=== PATIENT | female | born 1960 | race Caucasian/White ===

== ENCOUNTER → 2016-05-22 | Outpatient (CLI) | payer OTHER, MEDICARE ==
[2014-08-31 12:30] VITALS: BP 100/61
[~2016-05-22] MED LIST: ACET500T68 PO; ASPI-482 PO; ATOR20TA58; ATOR20TA58 PO; ESTR10TA; LACT1CAP25; LEVO75TA; LEVO75TA5 PO; LORA10CA; LORA10TA3 PO; METO25TA4 PO; MULT-245 PO; MVI,10VI4; MYCO360T; MYCO360T3 PO; TACR1CAP2 PO; TACR1CAP6
--- NOTE | 2016-05-22 13:13 | KCIC ---
PROCEDURE Two-view chest HISTORY Cough and chest discomfort for 3 days. Nonsmoker. COMPARISON None are currently available. FINDINGS Cardiac silhouette is not enlarged. No evidence of pneumothorax. No airspace consolidation. No evidence of a pleural effusion. IMPRESSION No evidence of focal airspace consolidation. Electronically signed by: Juan R Porter MD (May 22, 2016 13:12:50)
== END | disposition home or self-care (01) ==
LOC: KCIC 12:12
PROVIDERS: ATTEND Nurse Practitioner Family
DX: R07.89 Other chest pain (principal)
CPT/HCPCS: 71020

== ENCOUNTER → 2017-08-06 | Outpatient (CLI) | payer BC | END | disposition home or self-care (01) | LOC: KCIC MAMMO 15:17 | DX: Z12.31 Encounter for screening mammogram for malignant neoplasm of breast (principal) | CPT/HCPCS: 77067 ==

== ENCOUNTER → 2017-08-20 | Outpatient (CLI) | payer BC | END | disposition home or self-care (01) | LOC: KCIC MAMMO 09:12 | DX: R92.8 Other abnormal and inconclusive findings on diagnostic imaging of breast (principal); N64.89 Other specified disorders of breast | CPT/HCPCS: 76641; 77065 ==

== ENCOUNTER 2017-10-04 07:02 | Day surgery (SDC) | payer BC ==
[~2017-10-04 07:02] MED LIST changes: -ACET500T68 PO; -ASPI-482 PO; -ATOR20TA58; -ATOR20TA58 PO; -ESTR10TA; -LACT1CAP25; -LEVO75TA; -LEVO75TA5 PO; +LIDOCAINE 1% PF 2 ML VIAL. ID; -LORA10CA; -LORA10TA3 PO; -METO25TA4 PO; +MORPHINE SULFATE 4 MG/ML DISP.SYRIN. IV; -MULT-245 PO; -MVI,10VI4; -MYCO360T; -MYCO360T3 PO; +ONDANSETRON PF 4 MG/2 ML VIAL. IV; -TACR1CAP2 PO; -TACR1CAP6; +fentaNYL PF VIAL 100 MCG/2 ML VIAL IV
[2017-10-04] MEDS: IV RINGERS,LACTATED 1000ML 1,000 ML IV (07:35)
[2017-10-04] MEDS ORDERED: LIDOCAINE 2% PF Vial for OR 5 ML VIAL. (07:57)
[2017-10-04] MEDS ORDERED: PROPOFOL 20 ML IV (07:57)
== END 2017-10-04 09:01 | disposition home or self-care (01) ==
LOC: ENDOS 07:02
DX: K64.0 First degree hemorrhoids (principal); K57.30 Diverticulosis of large intestine without perforation or abscess without bleeding; E78.00 Pure hypercholesterolemia, unspecified; E03.9 Hypothyroidism, unspecified; K21.9 Gastro-esophageal reflux disease without esophagitis; Z94.0 Kidney transplant status; Z98.51 Tubal ligation status; Z87.442 Personal history of urinary calculi; Z80.0 Family history of malignant neoplasm of digestive organs; N28.1 Cyst of kidney, acquired; Z88.8 Allergy status to other drugs, medicaments and biological substances; Z79.899 Other long term (current) drug therapy; Z96.641 Presence of right artificial hip joint; Z90.710 Acquired absence of both cervix and uterus; Z90.79 Acquired absence of other genital organ(s); Z90.722 Acquired absence of ovaries, bilateral; M81.0 Age-related osteoporosis without current pathological fracture
CPT/HCPCS: 45378; J2704

== ENCOUNTER 2017-12-19 16:46 | Inpatient (IN) | payer BC ==
[2017-12-19 17:09] LABS: BILIRUBIN,URINE NEGATIVE (NEG); CLARITY,URINE CLOUDY; COLOR,URINE YELLOW; GLUCOSE,URINE NEGATIVE (NEG); NITRITE,URINE NEGATIVE (NEG); PH,URINE 6.5; PROTEIN,URINE 100 mg/dL (NEG-TRACE); UROBILINOGEN,URINE 0.2 mg/dL (0.2 mg/dL)
[2017-12-19] MEDS: ONDANSETRON PF 4 MG/2 ML VIAL. IV ×2 (17:15→20:45)
[2017-12-19] MEDS: IV NORMAL SALINE 1000ML BAG 1,000 ML IV ×3 (17:16→22:24)
[2017-12-19 17:19] LABS: BACTERIA,URINE FEW /HPF (0-FEW); SQUAMOUS EPITHELIAL CELL,UR FEW /LPF; WBC,URINE TNTC /HPF (0-4)
[2017-12-19 17:59] LABS: ADD MAN DIFF? YES; BASO % 0 % (0-3); EOS % 0 % (0-3); HEMATOCRIT 38.6 % (36.0-47.0); LYMPH # 0.2 x10^3/uL (1.0-4.8); LYMPH % 2 % (24-48); MEAN CORPUSCULAR HEMOGLOBIN 29 pg (25-35); MEAN CORPUSCULAR HGB CONC 34 g/dL (31-37); MEAN CORPUSCULAR VOLUME 86 fL (79-100); MONO # 0.6 x10^3/uL (0.0-1.1); MONO % 6 % (0-9); NEUT # 9.3 x10^3uL (1.8-7.7); NEUT % 91 % (31-73); PLATELET COUNT 144 x10^3/uL (140-400); RED BLOOD COUNT 4.51 x10^6/uL (3.50-5.40); RED CELL DISTRIBUTION WIDTH 13.2 % (11.5-14.5); WHITE BLOOD COUNT 10.1 x10^3/uL (4.0-11.0)
[2017-12-19 18:14] LABS: ANION GAP 10 (6-14); BLOOD UREA NITROGEN 22 mg/dL (7-20); BUN/CREATININE RATIO 17 (6-20); CALCIUM 8.9 mg/dL (8.5-10.1); CARBON DIOXIDE 25 mmol/L (21-32); CHLORIDE 104 mmol/L (98-107); CREATININE 1.3 mg/dL (0.6-1.0); GFR 42.2; GLUCOSE 141 mg/dL (70-99); SODIUM 139 mmol/L (136-145)
[2017-12-19 18:20] LABS: ALBUMIN 3.7 g/dL (3.4-5.0); ALBUMIN/GLOBULIN RATIO 1.1 (1.0-1.7); ALK PHOS 36 U/L (46-116); ALT (SGPT) 26 U/L (14-59); AST (SGOT) 12 U/L (15-37); LIPASE 67 U/L (73-393); TOTAL BILIRUBIN 0.6 mg/dL (0.2-1.0)
[2017-12-19 18:25] LABS: % BANDS 2 % (0-9); % LYMPHS 2 % (24-48); % MONOS 3 % (0-10); % SEGS 93 % (35-66)
[2017-12-19 18:26] LABS: PLT ESTIMATE ADEQUATE (ADEQUATE); TOXIC GRANULATION SLIGHT
[2017-12-19] MEDS ORDERED: ACETAMINOPHEN 500 MG TABLET PO (19:15)
[2017-12-19] MEDS ORDERED: IBUPROFEN 400 MG TABLET. PO (19:15)
[2017-12-19] MEDS: ACETAMINOPHEN 325 MG TABLET. PO (21:30)
[2017-12-19] MEDS: ATORVASTATIN CALCIUM 20 MG TABLET PO (22:21)
[2017-12-19] MEDS: MYCOPHENOLATE ACID 180 MG TABLET.DR. PO (22:22)
[2017-12-19] MEDS: FAMOTIDINE 20 MG TABLET. PO (22:22)
[2017-12-20] LABS: LACTIC ACID 0.8 mmol/L (0.4-2.0)
[2017-12-20 05:15] LABS: ADD MAN DIFF? NO
[2017-12-20 05:23] LABS: BASO % 0 % (0-3); EOS % 0 % (0-3); HEMATOCRIT 34.7 % (36.0-47.0); HEMOGLOBIN 11.9 g/dL (12.0-15.5); LYMPH # 0.2 x10^3/uL (1.0-4.8); LYMPH % 2 % (24-48); MEAN CORPUSCULAR HEMOGLOBIN 30 pg (25-35); MEAN CORPUSCULAR HGB CONC 34 g/dL (31-37); MEAN CORPUSCULAR VOLUME 86 fL (79-100); MONO # 0.9 x10^3/uL (0.0-1.1); MONO % 9 % (0-9); NEUT # 8.6 x10^3uL (1.8-7.7); NEUT % 89 % (31-73); PLATELET COUNT 118 x10^3/uL (140-400); RED BLOOD COUNT 4.03 x10^6/uL (3.50-5.40); WHITE BLOOD COUNT 9.7 x10^3/uL (4.0-11.0)
[2017-12-20 05:52] LABS: ALBUMIN 3.2 g/dL (3.4-5.0); ALBUMIN/GLOBULIN RATIO 1.1 (1.0-1.7); ALK PHOS 36 U/L (46-116); ALT (SGPT) 22 U/L (14-59); ANION GAP 12 (6-14); AST (SGOT) 11 U/L (15-37); BLOOD UREA NITROGEN 21 mg/dL (7-20); BUN/CREATININE RATIO 16 (6-20); CALCIUM 8.2 mg/dL (8.5-10.1); CARBON DIOXIDE 22 mmol/L (21-32); CHLORIDE 105 mmol/L (98-107); CREATININE 1.3 mg/dL (0.6-1.0); GFR 42.2; GLUCOSE 134 mg/dL (70-99); POTASSIUM 3.4 mmol/L (3.5-5.1); SODIUM 139 mmol/L (136-145); TOTAL BILIRUBIN 0.6 mg/dL (0.2-1.0); TOTAL PROTEIN 6.2 g/dL (6.4-8.2)
[2017-12-20] MEDS: ONDANSETRON PF 4 MG/2 ML VIAL. IV (06:04)
[2017-12-20] MEDS: LEVOTHYROXINE 100 MCG TABLET PO (06:53)
[2017-12-20] MEDS: MYCOPHENOLATE ACID 180 MG TABLET.DR. PO ×2 (08:47→20:07)
[2017-12-20] MEDS: FAMOTIDINE 20 MG TABLET. PO ×2 (08:47→20:07)
[2017-12-20] MEDS: LINEZOLID 600 MG TABLET PO ×2 (08:47→20:07)
[2017-12-20] MEDS: CETIRIZINE HCL 10 MG TABLET. PO (08:47)
[2017-12-20] MEDS: TACROLIMUS 3 MG PO (08:48)
[2017-12-20] MEDS ORDERED: LACTOBACILLUS RHAMNOSUS GG 1 CAPSULE. PO (09:00)
[2017-12-20] MEDS: fentaNYL PF VIAL 100 MCG/2 ML VIAL IV (09:46)
[2017-12-20] MEDS: MEROPENEM 500 MG in IV NORMAL SALINE 50ML 50 ML IV ×3 (09:46→17:47)
[2017-12-20] MEDS ORDERED: DOCUSATE SODIUM 100 MG CAPSULE. PO (11:00)
[2017-12-20] MEDS: IV NORMAL SALINE 1000ML BAG 1,000 ML IV (14:01)
[2017-12-20] MEDS: ACETAMINOPHEN 325 MG TABLET. PO (17:58)
[2017-12-20] MEDS ORDERED: cefTRIAXone IV Push 1 GM VIAL. IVP (18:00)
[2017-12-20] MEDS: ATORVASTATIN CALCIUM 20 MG TABLET PO (20:07)
[2017-12-21] MEDS: ONDANSETRON PF 4 MG/2 ML VIAL. IV ×2 (00:44→12:26)
[2017-12-21] MEDS: MEROPENEM 500 MG in IV NORMAL SALINE 50ML 50 ML IV ×4 (00:45→17:40)
[2017-12-21] MEDS: fentaNYL PF VIAL 100 MCG/2 ML VIAL IV (00:45)
[2017-12-21] MEDS: IV NORMAL SALINE 1000ML BAG 1,000 ML IV ×3 (04:00→22:15)
[2017-12-21 04:28] LABS: ADD MAN DIFF? NO
[2017-12-21 04:56] LABS: BASO % 0 % (0-3); EOS % 0 % (0-3); HEMATOCRIT 33.1 % (36.0-47.0); HEMOGLOBIN 11.2 g/dL (12.0-15.5); LYMPH # 0.1 x10^3/uL (1.0-4.8); LYMPH % 3 % (24-48); MEAN CORPUSCULAR HEMOGLOBIN 29 pg (25-35); MEAN CORPUSCULAR HGB CONC 34 g/dL (31-37); MEAN CORPUSCULAR VOLUME 85 fL (79-100); MONO # 0.5 x10^3/uL (0.0-1.1); MONO % 10 % (0-9); NEUT % 86 % (31-73); PLATELET COUNT 96 x10^3/uL (140-400); RED BLOOD COUNT 3.88 x10^6/uL (3.50-5.40); RED CELL DISTRIBUTION WIDTH 12.8 % (11.5-14.5); WHITE BLOOD COUNT 4.6 x10^3/uL (4.0-11.0)
[2017-12-21 05:21] LABS: ALBUMIN 2.9 g/dL (3.4-5.0); ALBUMIN/GLOBULIN RATIO 0.9 (1.0-1.7); ALK PHOS 29 U/L (46-116); ALT (SGPT) 24 U/L (14-59); ANION GAP 12 (6-14); AST (SGOT) 15 U/L (15-37); BLOOD UREA NITROGEN 12 mg/dL (7-20); BUN/CREATININE RATIO 10 (6-20); CALCIUM 8.2 mg/dL (8.5-10.1); CARBON DIOXIDE 22 mmol/L (21-32); CHLORIDE 105 mmol/L (98-107); CREATININE 1.2 mg/dL (0.6-1.0); GFR 46.3; GLUCOSE 151 mg/dL (70-99); POTASSIUM 3.5 mmol/L (3.5-5.1); SODIUM 139 mmol/L (136-145); TOTAL BILIRUBIN 0.6 mg/dL (0.2-1.0); TOTAL PROTEIN 6.2 g/dL (6.4-8.2)
[2017-12-21] MEDS: ACETAMINOPHEN/CODEINE 300/30MG TABLET. PO ×2 (05:49→17:42)
[2017-12-21] MEDS: FAMOTIDINE 20 MG TABLET. PO ×2 (08:28→20:05)
[2017-12-21] MEDS: CETIRIZINE HCL 10 MG TABLET. PO (08:28)
[2017-12-21] MEDS: LINEZOLID 600 MG TABLET PO ×2 (08:28→20:05)
[2017-12-21] MEDS: LEVOTHYROXINE 100 MCG TABLET PO (08:28)
[2017-12-21] MEDS: MYCOPHENOLATE ACID 180 MG TABLET.DR. PO ×2 (08:29→20:05)
[2017-12-21] MEDS: TACROLIMUS 3 MG PO (08:30)
[2017-12-21] MEDS: ATORVASTATIN CALCIUM 20 MG TABLET PO (20:05)
[2017-12-21] MEDS: ACETAMINOPHEN 325 MG TABLET. PO (22:46)
[2017-12-22] MEDS: MEROPENEM 500 MG in IV NORMAL SALINE 50ML 50 ML IV ×5 (00:04→23:05)
[2017-12-22] MEDS: ACETAMINOPHEN/CODEINE 300/30MG TABLET. PO (00:04)
[2017-12-22 04:32] LABS: ADD MAN DIFF? NO
[2017-12-22 04:41] LABS: BASO % 0 % (0-3); EOS # 0.1 x10^3/uL (0.0-0.7); EOS % 3 % (0-3); HEMATOCRIT 31.6 % (36.0-47.0); HEMOGLOBIN 10.8 g/dL (12.0-15.5); LYMPH # 0.2 x10^3/uL (1.0-4.8); LYMPH % 11 % (24-48); MEAN CORPUSCULAR HEMOGLOBIN 29 pg (25-35); MEAN CORPUSCULAR HGB CONC 34 g/dL (31-37); MEAN CORPUSCULAR VOLUME 86 fL (79-100); MONO # 0.5 x10^3/uL (0.0-1.1); MONO % 20 % (0-9); NEUT # 1.5 x10^3uL (1.8-7.7); NEUT % 66 % (31-73); PLATELET COUNT 92 x10^3/uL (140-400); RED CELL DISTRIBUTION WIDTH 12.5 % (11.5-14.5); WHITE BLOOD COUNT 2.3 x10^3/uL (4.0-11.0)
[2017-12-22 05:16] LABS: ANION GAP 8 (6-14); BLOOD UREA NITROGEN 10 mg/dL (7-20); CALCIUM 8.5 mg/dL (8.5-10.1); CARBON DIOXIDE 25 mmol/L (21-32); CHLORIDE 108 mmol/L (98-107); CREATININE 1.2 mg/dL (0.6-1.0); GFR 46.3; GLUCOSE 104 mg/dL (70-99); POTASSIUM 3.5 mmol/L (3.5-5.1); SODIUM 141 mmol/L (136-145)
[2017-12-22] MEDS: LEVOTHYROXINE 100 MCG TABLET PO (06:02)
[2017-12-22] MEDS: MYCOPHENOLATE ACID 180 MG TABLET.DR. PO ×2 (09:04→20:04)
[2017-12-22] MEDS: CETIRIZINE HCL 10 MG TABLET. PO (09:04)
[2017-12-22] MEDS: LINEZOLID 600 MG TABLET PO (09:04)
[2017-12-22] MEDS: FAMOTIDINE 20 MG TABLET. PO ×2 (09:04→20:04)
[2017-12-22] MEDS: TACROLIMUS 3 MG PO (09:05)
[2017-12-22] MEDS: IV NORMAL SALINE 1000ML BAG 1,000 ML IV (09:05)
[2017-12-22 10:09] LABS: % SAT IRON 15 % (15-34); IRON,SERUM 26 ug/dL (50-170)
[2017-12-22 10:25] LABS: FERRITIN 447 ng/mL (8-252)
[2017-12-22] MEDS: ACETAMINOPHEN 325 MG TABLET. PO (15:11)
[2017-12-22] MEDS: ATORVASTATIN CALCIUM 20 MG TABLET PO (20:04)
[2017-12-23] MEDS: MEROPENEM 500 MG in IV NORMAL SALINE 50ML 50 ML IV (05:38)
[2017-12-23 06:47] LABS: ADD MAN DIFF? NO
[2017-12-23] MEDS: LEVOTHYROXINE 100 MCG TABLET PO (07:03)
[2017-12-23 07:06] LABS: ANION GAP 12 (6-14); BLOOD UREA NITROGEN 11 mg/dL (7-20); CALCIUM 8.6 mg/dL (8.5-10.1); CARBON DIOXIDE 23 mmol/L (21-32); CHLORIDE 106 mmol/L (98-107); CREATININE 1.1 mg/dL (0.6-1.0); GFR 51.2; GLUCOSE 93 mg/dL (70-99); POTASSIUM 3.2 mmol/L (3.5-5.1); SODIUM 141 mmol/L (136-145)
[2017-12-23 07:08] LABS: BASO % 1 % (0-3); EOS # 0.1 x10^3/uL (0.0-0.7); EOS % 3 % (0-3); HEMATOCRIT 33.2 % (36.0-47.0); HEMOGLOBIN 11.3 g/dL (12.0-15.5); LYMPH # 0.3 x10^3/uL (1.0-4.8); LYMPH % 13 % (24-48); MEAN CORPUSCULAR HEMOGLOBIN 29 pg (25-35); MEAN CORPUSCULAR HGB CONC 34 g/dL (31-37); MEAN CORPUSCULAR VOLUME 84 fL (79-100); MONO # 0.5 x10^3/uL (0.0-1.1); MONO % 22 % (0-9); NEUT # 1.5 x10^3uL (1.8-7.7); NEUT % 61 % (31-73); PLATELET COUNT 113 x10^3/uL (140-400); RED BLOOD COUNT 3.95 x10^6/uL (3.50-5.40); RED CELL DISTRIBUTION WIDTH 12.5 % (11.5-14.5); WHITE BLOOD COUNT 2.5 x10^3/uL (4.0-11.0)
[2017-12-23] MEDS: TACROLIMUS 3 MG PO (09:14)
[2017-12-23] MEDS: MYCOPHENOLATE ACID 180 MG TABLET.DR. PO ×2 (09:15→21:19)
[2017-12-23] MEDS: FAMOTIDINE 20 MG TABLET. PO ×2 (09:15→21:19)
[2017-12-23] MEDS: CETIRIZINE HCL 10 MG TABLET. PO (09:16)
[2017-12-23] MEDS: cefTRIAXone IV Push 1 GM VIAL. IVP ×2 (13:15→15:35)
[2017-12-23] MEDS: LACTOBACILLUS RHAMNOSUS GG 1 CAPSULE. PO ×2 (13:15→21:19)
[2017-12-23] MEDS: POTASSIUM CHLORIDE 20 MEQ TABLET.ER. PO (13:16)
[2017-12-23] MEDS: CIPROFLOXACIN HCL 250 MG TABLET. PO (16:02)
[2017-12-23] MEDS: ATORVASTATIN CALCIUM 20 MG TABLET PO (21:19)
[2017-12-24 04:50] LABS: ADD MAN DIFF? NO
[2017-12-24 04:52] LABS: BASO % 1 % (0-3); EOS # 0.1 x10^3/uL (0.0-0.7); EOS % 3 % (0-3); HEMOGLOBIN 11.6 g/dL (12.0-15.5); LYMPH # 0.5 x10^3/uL (1.0-4.8); LYMPH % 16 % (24-48); MEAN CORPUSCULAR HEMOGLOBIN 29 pg (25-35); MEAN CORPUSCULAR HGB CONC 35 g/dL (31-37); MEAN CORPUSCULAR VOLUME 84 fL (79-100); MONO # 0.4 x10^3/uL (0.0-1.1); MONO % 14 % (0-9); NEUT # 2.1 x10^3uL (1.8-7.7); NEUT % 66 % (31-73); PLATELET COUNT 133 x10^3/uL (140-400); RED BLOOD COUNT 3.94 x10^6/uL (3.50-5.40); RED CELL DISTRIBUTION WIDTH 12.3 % (11.5-14.5); WHITE BLOOD COUNT 3.1 x10^3/uL (4.0-11.0)
[2017-12-24 05:11] LABS: ANION GAP 11 (6-14); BLOOD UREA NITROGEN 15 mg/dL (7-20); CALCIUM 8.3 mg/dL (8.5-10.1); CARBON DIOXIDE 24 mmol/L (21-32); CHLORIDE 106 mmol/L (98-107); CREATININE 1.1 mg/dL (0.6-1.0); GFR 51.2; GLUCOSE 93 mg/dL (70-99); POTASSIUM 3.4 mmol/L (3.5-5.1); SODIUM 141 mmol/L (136-145)
[2017-12-24] MEDS: LEVOTHYROXINE 100 MCG TABLET PO (06:48)
[2017-12-24] MEDS: TACROLIMUS 3 MG PO (08:26)
[2017-12-24] MEDS: CIPROFLOXACIN HCL 250 MG TABLET. PO (08:27)
[2017-12-24] MEDS: LACTOBACILLUS RHAMNOSUS GG 1 CAPSULE. PO (08:28)
[2017-12-24] MEDS: MYCOPHENOLATE ACID 180 MG TABLET.DR. PO (08:28)
[2017-12-24] MEDS: FAMOTIDINE 20 MG TABLET. PO (08:29)
[2017-12-24] MEDS: CETIRIZINE HCL 10 MG TABLET. PO (08:29)
[2017-12-24] MEDS: POTASSIUM CHLORIDE 20 MEQ TABLET.ER. PO (12:00)
[2017-12-24 13:21] LABS: C DIFF BY PCR Negative (Negative)
== END 2017-12-24 14:10 | disposition home or self-care (01) | DRG 699 ==
LOC: ER 16:46 → 5 SOUTH 19:31
DX: T86.13 Kidney transplant infection (principal); N10 Acute pyelonephritis; N17.9 Acute kidney failure, unspecified; N39.0 Urinary tract infection, site not specified; E03.9 Hypothyroidism, unspecified; M81.0 Age-related osteoporosis without current pathological fracture; E78.00 Pure hypercholesterolemia, unspecified; E78.5 Hyperlipidemia, unspecified; I12.9 Hypertensive chronic kidney disease with stage 1 through stage 4 chronic kidney disease, or unspecified chronic kidney disease; N18.3 Chronic kidney disease, stage 3 (moderate); D69.6 Thrombocytopenia, unspecified; D64.9 Anemia, unspecified; D72.819 Decreased white blood cell count, unspecified; Y83.0 Surgical operation with transplant of whole organ as the cause of abnormal reaction of the patient, or of later complication, without mention of misadventure at the time of the procedure; Z96.641 Presence of right artificial hip joint; Z90.710 Acquired absence of both cervix and uterus; Z88.8 Allergy status to other drugs, medicaments and biological substances; Z85.828 Personal history of other malignant neoplasm of skin; Z82.71 Family history of polycystic kidney; Z82.49 Family history of ischemic heart disease and other diseases of the circulatory system; Y92.89 Other specified places as the place of occurrence of the external cause
CPT/HCPCS: 36415; 74176; 76770; 80048; 80053; 81001; 82728; 83540; 83550; 83605; 83690; 85007; 85025; 87040; 87086; 87186; 87324; 87899; 96361; 96365; 96375; 99285; 99285-25; J0690; J0696; J2185; J2405; J3010; J7030

== ENCOUNTER → 2018-08-25 | Outpatient (CLI) | payer BC ==
[2017-12-24 11:00] VITALS: BP 116/75
[~2018-08-25] MED LIST changes: +ACET500T68 PO; +ASPI-482 PO; +ATOR20TA58; +ATOR20TA58 PO; +CIPR250T30 PO; +ESTR10TA; +LACT1CAP25; +LEVO75TA; +LEVO75TA5 PO; -LIDOCAINE 1% PF 2 ML VIAL. ID; +LORA10CA; +LORA10TA3 PO; +METO25TA4 PO; -MORPHINE SULFATE 4 MG/ML DISP.SYRIN. IV; +MULT-245 PO; +MULT10VI3; +MYCO360T; +MYCO360T3 PO; -ONDANSETRON PF 4 MG/2 ML VIAL. IV; +RANI-376 PO; +TACR1CAP2 PO; +TACR1CAP6; +TACR1TAB PO; -fentaNYL PF VIAL 100 MCG/2 ML VIAL IV
--- NOTE | 2018-08-25 18:01 | KCIC ---
Bilateral digital screening mammograms with 3-D tomosynthesis: Reason for examination: Routine screening. Comparison is made to previous studies dated 08/06/2017 and 06/22/2015. Bilateral mammograms in CC and oblique projections were obtained with 2-D imaging and 3-D tomosynthesis imaging on a Siemens Inspiration unit and reviewed on the workstation. Interpretation was made with the benefit of CAD. The skin and nipples show no abnormalities. No abnormal axillary lymph nodes are seen. The breast parenchyma shows scattered fatty and fibroglandular density. (Breast density: Category B.) There continues to be some mild patchy asymmetry in the left breast which is unchanged. There are no new dominant masses, suspicious calcifications or architectural distortion. Impression: No evidence of malignancy. Recommend routine screening. BI-RAD Category 2: Benign. "Our facility is accredited by the [employer] Mammography [employer]." This patient's information has been entered into a reminder system for the patient to be notified with the results of her examination and a target date for the next mammogram. Electronically signed by: Alize Islas MD (08/25/2018 5:58 PM) [id number]
== END | disposition home or self-care (01) ==
LOC: KCIC MAMMO 16:03
PROVIDERS: ATTEND Family Medicine
DX: Z12.31 Encounter for screening mammogram for malignant neoplasm of breast (principal)
CPT/HCPCS: 77063; 77067

== ENCOUNTER → 2019-11-02 | Outpatient (CLI) | payer BC ==
[2017-12-24 11:00] VITALS: BP 116/75
[~2019-11-02] MED LIST changes: -LEVO75TA; +LEVO75TA90
--- NOTE | 2019-11-02 16:13 | KCIC ---
Bilateral digital screening mammograms with 3-D tomosynthesis: Reason for examination: Routine screening. Comparison is made to previous studies dated back to 06/22/2015. Bilateral mammograms in CC and oblique projections were obtained with 2-D imaging and 3-D tomosynthesis imaging on a Siemens Inspiration unit and reviewed on the workstation. Interpretation was made with the benefit of CAD. The skin and nipples show no abnormalities. No abnormal axillary lymph nodes are seen. The breast parenchyma shows scattered fatty and fibroglandular density. (Breast density: Category B.) There continues to be a small nodule present in the left breast central at the 3:00 B position which is stable. There are no new dominant masses, suspicious calcifications or architectural distortion. Impression: No evidence of malignancy. Recommend routine screening. BI-RAD Category 2: Benign. "Our facility is accredited by the [employer] Mammography [employer]." This patient's information has been entered into a reminder system for the patient to be notified with the results of her examination and a target date for the next mammogram. Electronically signed by: Alize Islas MD (11/02/2019 4:10 PM) [email or web address]
== END | disposition home or self-care (01) ==
LOC: KCIC MAMMO 14:29
PROVIDERS: ATTEND Family Medicine
DX: Z12.31 Encounter for screening mammogram for malignant neoplasm of breast (principal); N64.89 Other specified disorders of breast
CPT/HCPCS: 77063; 77067

== ENCOUNTER → 2020-11-07 | Outpatient (CLI) | payer BC ==
[2017-12-24 11:00] VITALS: BP 116/75
[~2020-11-07] MED LIST changes: -LACT1CAP25; +LACT1CAP39
--- NOTE | 2020-11-07 10:57 | KCIC ---
Bilateral digital screening mammograms with 3-D tomosynthesis: Reason for examination: Routine screening. Comparison is made to previous studies dated back to 06/22/2015. Bilateral mammograms in CC and oblique projections were obtained with 2-D imaging and 3-D tomosynthes is imaging on a Siemens Inspiration unit and reviewed on the workstation. Interpretation was made wit h the benefit of CAD. The skin and nipples show no abnormalities. No abnormal axillary lymph nodes are seen. The breast par enchyma shows scattered fatty and fibroglandular density. (Breast density: Category B.) There continu es to be a small circumscribed nodule posterior superiorly in the left breast seen on oblique view co nsistent with an intramammary lymph node. There are no new dominant masses, suspicious calcifications or architectural distortion. Impression: No evidence of malignancy. Recommend routine screening. BI-RAD Category 2: Benign. "Our facility is accredited by the [employer] Mammography [employer]." This patient's information has been entered into a reminder system for the patient to be notified wit h the results of her examination and a target date for the next mammogram. Electronically signed by: Alize Islas MD (11/07/2020 10:54 AM) [email or web address]
== END ==
LOC: KCIC MAMMO 09:35
PROVIDERS: ATTEND Family Medicine
DX: Z12.31 Encounter for screening mammogram for malignant neoplasm of breast (principal)
CPT/HCPCS: 77063; 77067